=== PATIENT | male | born 1995 | race Caucasian/White ===

== ENCOUNTER 2023-08-22 05:19 | Emergency (ER) | payer SELFPAY ==
[2023-08-22 05:30] VITALS: BP 130/83; PULSE 123; RESP 23; O2SAT 97
[2023-08-22 05:34] VITALS: BP 132/88; PULSE 130; RESP 18; TEMP 38.2; O2SAT 96; BMI 23.3
--- NOTE | 2023-08-22 05:56 | ED_ITS ---
HPI - URI/Sore Throat General Chief Complaint: Upper Respiratory Symptoms Stated Complaint: pain in chest, erratic heart beat Time Seen by Provider: 08/22/23 05:44 Source: patient Mode of arrival: Ambulatory History of Present Illness HPI Narrative: 28-year-old male who is healthy although there is a history of traumatic brain injury presenting with 3 days of cough sore throat myalgias. Also has a fever, and family is concerned that his oral intake has been poor. He is not short of breath he is not having chest pain he is not having vomiting or diarrhea. He does not take any regular medications. Family was concerned that it heart rate was fast as well. He is accompanied by parents who contribute in the history. Related Data Allergies Allergy/AdvReac Type Severity Reaction Status Date / Time No Known Drug Allergies Allergy Verified 08/22/23 06:01 Patient History Social History Smoking Status: Never smoker Smoking Status: Never smoker alcohol intake frequency: holidays/special occasions only Substance Use Type: does not use Exam Initial Vital Signs Initial Vital Signs: Vital Signs Pulse Rate 123 H 08/22/23 05:30 Respiratory Rate 23 08/22/23 05:30 Blood Pressure 130/83 08/22/23 05:30 Pulse Oximetry 97 08/22/23 05:30 Const General: No acute distress and ill appearing [facility] Head: normocephalic and atraumatic Throat: posterior oropharynx normal, tonsils normal and uvula midline Neck Neck: supple and lymphadenopathy Resp Effort & Inspection: normal respiratory effort and able to speak in complete sentences Auscultation: clear to auscultation bilaterally Cardio Rate: tachycardic Rhythm: regular rhythm Heart Sounds: S1 normal, S2 normal and no murmurs Skin General: no rashes or lesions noted, dry skin and warm Neuro General: patient alert, patient oriented x3, gait normal and no focal motor deficits Course Course Course Narrative: Patient appears well, I ordered ibuprofen and he was given a L of crystalloid. We discussed testing, given his overall nontoxic appearance I did not specifically recommended but certainly offered it, this is with if course the caveats that treatment for influenza and COVID which are the only 2 in disease we would test for the have specific treatment is of limited benefit. With shared decision-making patient and parents are comfortable not testing. Orders Ordered: ED Orders 08/22/23 EKG-12 Lead Routine Sodium Chloride (Normal Saline 0.9%) 1,000 mls @ 1,000 mls/hr IV BOLUS ONE Stop: 08/22/23 07:01 Last Infusion: 08/22/23 06:14 Dose: Infused Documented By: Admin: 08/22/23 06:04 Dose: 1,000 mls/hr Documented By: MAURO Discontinued Medications Ibuprofen (Ibuprofen 400 Mg Tablet) 800 mg PO NOW ONE Stop: 08/22/23 05:56 Last Admin: 08/22/23 06:00 Dose: 800 mg Documented By: MAURO Reevaluation(s) Reevaluation #1: Still has a mild tachycardia looks well otherwise is feeling better we will discharge Vital Signs Vital signs: Vital Signs - 8 hr 08/22/23 05:30 08/22/23 05:34 08/22/23 06:00 Temperature 100.7 F H Pulse Rate 123 H 130 H Respiratory Rate 23 18 Blood Pressure 130/83 132/88 129/72 Pulse Oximetry 97 96 Oxygen Delivery Method Room Air 08/22/23 06:00 08/22/23 06:30 08/22/23 06:30 Temperature Pulse Rate 115 H 112 H Respiratory Rate 18 23 Blood Pressure 116/71 Pulse Oximetry 96 Oxygen Delivery Method MDM - URI/Sore Throat ECG Data Interpretation: EKG shows sinus tachycardia otherwise normal rate is 120 MDM Narrative Medical decision making narrative: 28-year-old male with no comorbidities presenting with a febrile respiratory illness. He is nontoxic in appearance not hypotensive and not hypoxic. He was given night of products and IV fluids. We discussed testing, given his overall well appearance I did not think it was likely to alter his course and patient preferred not to have any viral testing done. Discharged home on symptomatic care. I considered but do not suspect bacterial pneumonia or sepsis. Indications for return to the emergency department were reviewed. Discharge Plan Departure Patient Disposition: Home Clinical Impression: Upper respiratory infection Instructions: DI for Fever (Symptom) -- Adult Activity Restrictions/Additional Instructions: Examination today is reassuring. You appear to be a healthy young man with a viral respiratory infection. This is causing a fever and fast heart rate. Get adequate fluids rest use ibuprofen and/or acetaminophen as needed for fevers. Expect that her symptoms will be improving in the next couple of days. If you are having increasing shortness of breath uncontrolled vomiting or other acute symptoms recheck in the emergency department. If you are not completely well in about 3-5 days recheck with primary care. Stand Alone Forms: Patient Portal/API
[2023-08-22 06:00] VITALS: BP 129/72; PULSE 115; RESP 18
[2023-08-22] MEDS: IBUPROFEN 400 MG TABLET 800 MG PO (06:00)
--- NOTE | 2023-08-22 06:01 | PC.NURSE ---
pt states he feels like he has bronchitis, s/s x 3 days tonight started feeling as if he his heart was racing
[2023-08-22] MEDS: SODIUM CHLORIDE 0.9% 1,000 ML 1000 ML IV (06:04)
[2023-08-22 06:30] VITALS: BP 116/71; PULSE 112; RESP 23; O2SAT 96
[2023-08-22 07:02] VITALS: TEMP 37.3
[2023-08-22 07:06] VITALS: TEMP 37.3
== END 2023-08-22 07:05 | disposition home or self-care (01) ==
PROVIDERS: Emergency Provider Emergency Medicine
DX: J06.9 Acute upper respiratory infection, unspecified (principal); R50.9 Fever, unspecified; R07.89 Other chest pain
CPT/HCPCS: 36415; 93005; 93010; 99284

== ENCOUNTER → 2024-08-29 10:39 | Outpatient (CLI) | payer SELFPAY | PROVIDERS: Visit Provider Nurse Practitioner Family | DX: J02.9 Acute pharyngitis, unspecified (principal) | CPT/HCPCS: 87070 ==

== ENCOUNTER → 2024-10-17 09:40 | Outpatient (CLI) | payer SELFPAY ==
[2024-10-17 09:59] LABS: Hematocrit 46.3 % (41-53); Mean Corpuscular HGB Conc 34.7 % (30-36); Mean Corpuscular Hemoglobin 29.2 PG (26-34); Mean Corpuscular Volume 84.1 fL (80-100); Platelet Count 291 X10^3/uL (150-400); Red Cell Distribution Width 13.4 % (11.6-14.8); White Blood Cell Count 6.1 X10^3/uL (4.5-11.0)
[2024-10-17 10:42] LABS: Alanine Aminotransferase 21 IU/L (<50); Albumin 4.7 g/dL (3.5-5.0); Albumin Globulin Ratio 1.6 (1.0-2.8); Alkaline Phosphatase 85 U/L (38-126); Aspartate Aminotransferase 22 IU/L (17-59); BUN Creatinine Ratio 10.6 (6-22); Bilirubin Total 0.9 mg/dL (0.2-1.3); Blood Urea Nitrogen 12 mg/dL (9-20); Calcium 9.4 mg/dL (8.4-10.2); Carbon Dioxide 27 mmol/L (22-32); Chloride 105 mmol/L (98-107); Estimated Glomerular Filt Rate > 60 mL/min (>60); Glucose 102 mg/dL (70-100); HEMOLYSIS < 15 (0-50); Potassium 4.3 mmol/L (3.4-5.1); Sodium 140 mmol/L (137-145); Total Protein 7.7 g/dL (6.3-8.2)
[2024-10-17 11:11] LABS: TSH w/ Reflex to FT4 1.38 uIU/mL (0.47-4.68)
== END ==
PROVIDERS: PCP Family Medicine; Referring Provider Family Medicine; Visit Provider Family Medicine
DX: R63.4 Abnormal weight loss (principal)
CPT/HCPCS: 36415; 80053; 84443; 85027

== ENCOUNTER → 2024-12-15 10:30 | Outpatient (CLI) | payer BC, SELFPAY ==
[2024-12-15 11:02] LABS: Add Manual Diff / Slide Review NO; Basophils Absolute Auto 0 /uL (0-100); Basophils Percent Auto 0.6 % (0-2); Eosinophils Absolute Auto 100 /uL (0-450); Hemoglobin 16.2 g/dL (13.5-17.5); Lymphocytes Absolute Auto 2100 /uL (1100-4500); Lymphocytes Percent Auto 32.9 % (25-40); Mean Corpuscular HGB Conc 34.5 % (30-36); Mean Corpuscular Hemoglobin 28.9 PG (26-34); Mean Corpuscular Volume 83.8 fL (80-100); Monocytes Absolute Auto 400 /uL (0-900); Monocytes Percent Auto 6.1 % (3-14); Neutrophils Absolute Auto 3800 /uL (1500-7000); Neutrophils Percent Auto 59.4 % (50-75); Platelet Count 291 X10^3/uL (150-400); Red Blood Cell Count 5.62 X10^6/uL (4.5-5.9); White Blood Cell Count 6.4 X10^3/uL (4.5-11.0)
[2024-12-15 11:12] LABS: Alanine Aminotransferase 22 IU/L (<50); Albumin 4.8 g/dL (3.5-5.0); Albumin Globulin Ratio 1.5 (1.0-2.8); Alkaline Phosphatase 86 U/L (38-126); Aspartate Aminotransferase 23 IU/L (17-59); BUN Creatinine Ratio 13.8 (6-22); Bilirubin Total 1.4 mg/dL (0.2-1.3); Blood Urea Nitrogen 15 mg/dL (9-20); Calcium 9.2 mg/dL (8.4-10.2); Carbon Dioxide 28 mmol/L (22-32); Chloride 103 mmol/L (98-107); Estimated Glomerular Filt Rate > 60 mL/min (>60); Globulin 3.1 g/dL (1.7-4.1); Glucose 102 mg/dL (70-100); HEMOLYSIS < 15 (0-50); Sodium 140 mmol/L (137-145); Total Protein 7.9 g/dL (6.3-8.2)
== END ==
PROVIDERS: PCP Family Medicine; Referring Provider Family Medicine; Visit Provider Family Medicine
DX: Z13.0 Encounter for screening for diseases of the blood and blood-forming organs and certain disorders involving the immune mechanism (principal)
CPT/HCPCS: 36415; 80053; 85025